=== PATIENT | female | born 1995 | race Caucasian/White ===

== ENCOUNTER 2022-12-17 10:43 | Outpatient (CLI) | payer OTHER, SELFPAY | END 2022-12-17 10:44 | disposition home or self-care (01) | PROVIDERS: PCP Family Medicine; Visit Provider Obstetrics & Gynecology | DX: O20.9 Hemorrhage in early pregnancy, unspecified (principal) | CPT/HCPCS: 84702; 86900; 86901 ==

== ENCOUNTER 2022-12-17 15:18 | Outpatient (CLI) | payer OTHER, SELFPAY ==
--- NOTE | 2022-12-17 15:00 | CRLHL7_ITS ---
For Patients: As a result of the Century Cures Act, medical imaging exams and procedure reports are released immediately into your electronic medical record. You may view this report before your referring provider. If you have questions, please contact your health care provider. INDICATION: Bleeding in . TECHNIQUE: Ultrasound OB pelvis transabdominal and transvaginal. Real-time mead-scale imaging of the pelvis was performed. COMPARISON: None. FINDINGS: No definite intrauterine gestational sac or pole identified. Questionable intrauterine gestational sac seen in the fundus. The endometrium measures 8 millimeters. The ovaries are of normal size. Indeterminate 2.1 centimeter anechoic lesion in the right ovary with mural wall nodularity/septa. IMPRESSION: No definite intrauterine gestational sac or pole identified. Questionable intrauterine gestational sac seen in the fundus. Indeterminate 2.1 centimeter anechoic lesion in the right ovary with mural wall nodularity/septate, possibly a corpus luteal cyst. Differential includes of uncertain location, early gestation, or miscarriage in the appropriate clinical setting. Recommend correlation with same-day quantitative beta HCG, as well as follow-up with OB Gyne, trending of beta HCG, and short term repeat ultrasound. Dictated by Sp Alonso MD @ 12/17/2022 4:54:59 PM (Electronically Signed)
== END 2022-12-17 15:19 | disposition home or self-care (01) ==
LOC: US 15:18
PROVIDERS: PCP Family Medicine; Visit Provider Obstetrics & Gynecology
DX: O20.9 Hemorrhage in early pregnancy, unspecified (principal)
CPT/HCPCS: 76817

== ENCOUNTER 2022-12-20 09:12 | Outpatient (CLI) | payer OTHER, SELFPAY | END 2022-12-20 09:13 | disposition home or self-care (01) | LOC: NFLDREF 12-21 07:02 | PROVIDERS: PCP Family Medicine; Referring Provider Family Medicine; Visit Provider Obstetrics & Gynecology | DX: O20.9 Hemorrhage in early pregnancy, unspecified (principal) | CPT/HCPCS: 84702 ==

== ENCOUNTER 2023-01-07 10:54 | Outpatient (CLI) | payer OTHER, SELFPAY ==
--- NOTE | 2023-01-07 11:00 | CRLHL7_ITS ---
For Patients: As a result of the Century Cures Act, medical imaging exams and procedure reports are released immediately into your electronic medical record. You may view this report before your referring provider. If you have questions, please contact your health care provider. INDICATION: Follow up viability COMPARISON: 12.17.22 TECHNIQUE: Real-time mead-scale imaging of the pelvis was performed. FINDINGS: Sonographic imaging demonstrates a single living intrauterine gestation. The embryo demonstrates a regular cardiac rate measuring 154 beats per minute. The embryo`s crown-rump length measurement of 1.6 cm corresponds to a gestational age of 8 weeks 0 days with a sonographic due date of 08/19/2023. There is a normal-appearing yolk sac. There are no gross abnormalities noted within the embryo at this early state of development. The gestational sac has a normal appearance. There is no evidence of a perigestational hemorrhage. The amount of fluid within the sac appears appropriate for gestational age. IMPRESSION: Single living intrauterine with sonographic gestational age 8 weeks 0 days and sonographic due date of 08/19/2023. Dictated by Andrea uHbbard MD @ 01/07/2023 11:59:46 AM (Electronically Signed)
== END 2023-01-07 10:55 | disposition home or self-care (01) ==
LOC: US 10:55
PROVIDERS: PCP Family Medicine; Visit Provider Physician Assistant
DX: Z34.92 Encounter for supervision of normal pregnancy, unspecified, second trimester (principal); Z3A.14 14 weeks gestation of pregnancy
CPT/HCPCS: 0353U; 76817; 86703; 86803; 86850; 86900; 86901; 87340; 87491; 87591

== ENCOUNTER 2023-01-07 12:31 | Outpatient (CLI) | payer OTHER, SELFPAY ==
[2023-01-07 21:33] LABS: Chlamydia DNA Amplified* NOT DETECTED (No Detected); GC DNA Amplified* NOT DETECTED (No Detected)
== END 2023-01-07 12:32 | disposition home or self-care (01) ==
PROVIDERS: PCP Family Medicine; Visit Provider Registered Nurse
DX: Z34.92 Encounter for supervision of normal pregnancy, unspecified, second trimester (principal); Z3A.14 14 weeks gestation of pregnancy
CPT/HCPCS: 0353U; 86592; 86703; 86762; 86787; 86803; 86850; 86900; 86901; 87086; 87340

== ENCOUNTER 2023-02-03 20:40 | Day surgery (SDC) | payer OTHER, SELFPAY ==
[2023-02-03] VITALS (23 sets, daily range): BP systolic 83–126; BP diastolic 50–94; PULSE 76–143; RESP 16–20; TEMP 36.2–38.2; O2SAT 96–100; BMI 29.6
--- NOTE | 2023-02-03 20:54 | ED_ITS ---
HPI - General Adult General Time Seen by Provider: 20:54 Date Seen: 02/03/23 Chief complaint: Vaginal Bleeding Stated complaint: Having a miscarriage, losing blood Time Seen by Provider: 02/03/23 20:54 Source: patient and RN notes reviewed Mode of arrival: ambulatory Limitations: no limitations History of Present Illness HPI narrative: Patient is a 28-year-old female coming in with significant vaginal bleeding. Nursing staff requested physician in the room immediately. She started bleeding heavily about an hour ago, states maybe about a pint every 15 minutes. She has a towel in her pants and is soaking through this. She reportedly is about 12 weeks but was told that she lost the baby about 8 weeks. She had some spotting over the last week. She states she was given cytotec in clinic today and that is when the bleeding really picked up. She is feeling lightheaded and dizzy. She is looking pale to her . Related Data Home Medications Medication Instructions Recorded Confirmed PNV,[id number] 27 mg-folic 400 cap PO 12/17/22 02/03/23 mcg-Lfolate 1 mg-dha 250 mg capsule cetirizine 10 mg tablet (Zyrtec) 10 mg PO QDAY PRN 02/03/23 02/03/23 Previous Rx's Medication Instructions Recorded ibuprofen 800 mg tablet 800 mg PO Q8H #12 tabs 02/03/23 ondansetron 4 mg disintegrating 4 mg PO Q8H #5 tabs 02/03/23 tablet Allergies Allergy/AdvReac Type Severity Reaction Status Date / Time acetaminophen [From Vicodin] Allergy Intermediate Vomiting Verified 02/03/23 14:17 hydrocodone [From Vicodin] Allergy Intermediate Vomiting Verified 02/03/23 14:17 Review of Systems Status of ROS: Reports: 6 or more systems reviewed and unremarkable except as noted in History and below [facility] Medical History (Updated 02/03/23 @ 22:03 by Vicki Faulkner MD) Incomplete ?O03.4 - Incomplete spontaneous without complication (ICD-10) Surgical History (Updated 02/03/23 @ 22:04 by Vicki Faulkner MD) S/P D&C (status post dilation and curettage) (02/03/23) ?Z98.890 - Other specified postprocedural states (ICD-10) [place] teeth extracted ?K08.409 - Partial loss of teeth, unspecified cause, unspecified class (ICD- 10) Social History Smoking Status: Never smoker Little interest or pleasure in doing things: not at all Feeling down, depressed, or hopeless: not at all Exam Const: Vital Signs, click to edit/add: Vital Signs - 24 hr 02/03/23 20:57 02/03/23 21:14 02/03/23 21:48 Temperature 98.1 F 97.1 F L Pulse Rate 78 Pulse Rate [Left P ulse Oximeter] 118 H Pulse Rate [Right Pulse Oximeter] Respiratory Rate 20 16 Blood Pressure 95/60 Blood Pressure [Le ft Arm] Blood Pressure [Ri ght Upper Arm] 110/73 Pulse Oximetry 96 99 100 [facility] Room Air 02/03/23 21:11 02/03/23 21:15 02/03/23 21:17 Temperature Pulse Rate 123 H 143 H Pulse Rate [Left P ulse Oximeter] Pulse Rate [Right Pulse Oximeter] Respiratory Rate Blood Pressure 111/94 H Blood Pressure [Le ft Arm] Blood Pressure [Ri ght Upper Arm] Pulse Oximetry 100 97 Oxygen Delivery [facility] 02/03/23 21:22 02/03/23 21:26 02/03/23 21:30 Temperature Pulse Rate 91 82 85 Pulse Rate [Left P ulse Oximeter] Pulse Rate [Right Pulse Oximeter] Respiratory Rate Blood Pressure 88/50 L 83/56 L Blood Pressure [Le ft Arm] Blood Pressure [Ri ght Upper Arm] Pulse Oximetry 100 100 100 Oxygen Delivery [facility] 02/03/23 21:31 02/03/23 21:45 02/03/23 21:47 Temperature Pulse Rate 85 76 80 Pulse Rate [Left P ulse Oximeter] Pulse Rate [Right Pulse Oximeter] Respiratory Rate Blood Pressure 92/62 95/60 Blood Pressure [Le ft Arm] Blood Pressure [Ri ght Upper Arm] Pulse Oximetry 100 100 99 Oxygen Delivery [facility] 02/03/23 22:49 02/03/23 23:00 02/03/23 23:15 Temperature 98.4 F Pulse Rate 103 H 93 93 Pulse Rate [Left P ulse Oximeter] Pulse Rate [Right Pulse Oximeter] Respiratory Rate 16 16 16 Blood Pressure 119/88 114/78 106/81 Blood Pressure [Le ft Arm] Blood Pressure [Ri ght Upper Arm] Pulse Oximetry 100 100 100 Oxygen Delivery [facility] Room Air Room Air 02/03/23 22:55 02/03/23 23:05 02/03/23 23:10 Temperature 100.3 F H Pulse Rate 91 93 92 Pulse Rate [Left P ulse Oximeter] Pulse Rate [Right Pulse Oximeter] Respiratory Rate 16 16 16 Blood Pressure 117/94 H 111/86 110/84 Blood Pressure [Le ft Arm] Blood Pressure [Ri ght Upper Arm] Pulse Oximetry 100 100 100 Oxygen Delivery [facility] Room Air 02/03/23 23:20 02/03/23 23:25 02/03/23 23:30 Temperature 100.8 F H 100.3 F H Pulse Rate 92 103 H 90 Pulse Rate [Left P ulse Oximeter] Pulse Rate [Right Pulse Oximeter] Respiratory Rate 18 18 20 Blood Pressure 113/86 126/90 H 126/83 Blood Pressure [Le ft Arm] Blood Pressure [Ri ght Upper Arm] Pulse Oximetry 99 100 100 Oxygen Delivery [facility] Room Air Room Air 02/03/23 23:40 02/03/23 23:54 02/04/23 00:05 Temperature 98.6 F 98.6 F 98.6 F Pulse Rate 84 Pulse Rate [Left P ulse Oximeter] Pulse Rate [Right Pulse Oximeter] 84 91 Respiratory Rate 16 16 16 Blood Pressure Blood Pressure [Le ft Arm] 123/85 123/85 128/81 Blood Pressure [Ri ght Upper Arm] Pulse Oximetry 99 99 Oxygen Delivery [facility] Room Air Room Air Room Air 02/04/23 00:20 02/04/23 00:35 Temperature 98.3 F 98.7 F Pulse Rate Pulse Rate [Left P ulse Oximeter] Pulse Rate [Right Pulse Oximeter] 83 87 Respiratory Rate 16 16 Blood Pressure Blood Pressure [Le ft Arm] 124/85 131/87 Blood Pressure [Ri ght Upper Arm] Pulse Oximetry 99 99 Oxygen Delivery [facility] Room Air Room Air Course Course Hospital Course: Patient is having significant bleeding after misoprostol for a miscarriage. We will plan on obtaining 2 IVs, type and screen. I have looked in her records and she is O positive, antibody screen negative. Her hemoglobin was 13 on January 07. She will be on cardiac monitoring and pulse oximetry. I have ordered a L of normal saline to start with, more fluids and O negative blood if needed. Reevaluation(s) Reevaluation #1: Have contacted OB on-call Dr. Davin Ayala. We will be contacting the OR crew through the warehouse handler. Patient will be going to the OR for a D&C. Time: 21:07 Reevaluation #2: Nursing staff alerted me to patient feeling faint dizzy, recheck of her blood pressure was systolic 80. We are initiating a 2nd unit of normal saline, 1 unit of O negative emergently. 2 units of packed red cells to be typed and screened. Have updated the press box custodian, she asked for FFP to be thought which I have alerted lab to and ordered. I am also ordering 1000 mg IV transxemic acid. Time: 21:27 Vital Signs Vital signs: Initial Vital Signs Pulse Oximetry 96 02/03/23 20:57 Vital Signs Pulse Oximetry 96 02/03/23 20:57 Temperature 98.7 F 02/04/23 00:35 Pulse Rate 87 02/04/23 00:35 Respiratory Rate 16 02/04/23 00:35 Blood Pressure 131/87 02/04/23 00:35 Pulse Oximetry 99 02/04/23 00:35 Oxygen Delivery Method Room Air 02/04/23 00:35 Medical Decision Making Lab Data Lab results reviewed: Yes I reviewed the patient's lab results Labs: Lab Results 02/03/23 02/03/23 02/03/23 Range/Units 21:01 22:23 22:23 WBC 18.22 H 23.78 H (4.50-11.00) K/uL RBC 3.62 L 2.85 L (4.00-5.20) m/uL Hgb 11.4 L 8.8 L (12.0-16.0) gm/dL Hct 34.3 26.5 L (33.0-51.0) % MCV 95 93 (80-100) fL MCH 32 31 (26-34) pg MCHC 33 33 (32-36) gm/dL RDW Coeff of Ferdinand 12.0 12.5 (11.5-15.5) % Plt Count 400 274 (140-440) K/uL Neut % (Auto) 68.7 81.9 H (42.0-72.0) % Lymph % (Auto) 22.9 10.5 L (20-44) % [place] % (Auto) 6.0 5.1 (0.0-11.0) % Eos % (Auto) 1.9 0.7 (0.0-7.0) % Baso % (Auto) 0.3 0.2 (0.0-3.0) % Neut # (Auto) 12.50 H 19.50 H (1.7-7.0) K/uL Lymph # (Auto) 4.20 H 2.50 (0.90-2.90) K/uL [place] # (Auto) 1.10 H 1.20 H (0.00-0.90) K/UL Eos # (Auto) 0.30 0.20 (0.00-0.50) K/uL Baso # (Auto) 0.10 0.00 (0.00-0.30) K/uL INR 1.27 H (0.91-1.10) APTT 27 Cancelled (23-33) Seconds Fibrinogen 270 (200-450) mg/dL Sodium 134 L (135-149) mmol/L Potassium 3.4 L (3.6-5.1) mmol/L Chloride 102 (96-114) mmol/L Carbon Dioxide 19 L (20-32) mmol/L BUN 11 (5-24) mg/dL Creatinine 0.6 (0.5-1.5) mg/dL Estimated Creat Clear 139.56 Estimated GFR 125 ml/min Glucose 151 H (60-115) mg/dL Calcium 9.0 (8.4-10.6) mg/dL Total Bilirubin (0.1-1.5) mg/dL AST (12-35) U/L ALT (4-35) U/L Alkaline Phosphatase (40-150) U/L Total Protein (6.0-8.3) g/dL Albumin (3.3-5.0) g/dL Crossmatch (AHG) See Detail 02/03/23 Range/Units 22:23 WBC (4.50-11.00) K/uL RBC (4.00-5.20) m/uL Hgb (12.0-16.0) gm/dL Hct (33.0-51.0) % MCV (80-100) fL MCH (26-34) pg MCHC (32-36) gm/dL RDW Coeff of Ferdinand (11.5-15.5) % Plt Count (140-440) K/uL Neut % (Auto) (42.0-72.0) % Lymph % (Auto) (20-44) % [place] % (Auto) (0.0-11.0) % Eos % (Auto) (0.0-7.0) % Baso % (Auto) (0.0-3.0) % Neut # (Auto) (1.7-7.0) K/uL Lymph # (Auto) (0.90-2.90) K/uL [place] # (Auto) (0.00-0.90) K/UL Eos # (Auto) (0.00-0.50) K/uL Baso # (Auto) (0.00-0.30) K/uL INR (0.91-1.10) APTT (23-33) Seconds Fibrinogen Cancelled (200-450) mg/dL Sodium 132 L (135-149) mmol/L Potassium 5.0 (3.6-5.1) mmol/L Chloride 109 (96-114) mmol/L Carbon Dioxide 19 L (20-32) mmol/L BUN 11 (5-24) mg/dL Creatinine 0.6 (0.5-1.5) mg/dL Estimated Creat Clear 139.56 Estimated GFR 125 ml/min Glucose 115 (60-115) mg/dL Calcium 7.2 L (8.4-10.6) mg/dL Total Bilirubin 0.2 (0.1-1.5) mg/dL AST 17 (12-35) U/L ALT 13 (4-35) U/L Alkaline Phosphatase 36 L (40-150) U/L Total Protein 5.0 L (6.0-8.3) g/dL Albumin 2.7 L (3.3-5.0) g/dL Crossmatch (AHG) Critical Care Time Critical Care Time Critical Care Time: Yes Attestation: The patient required my highest level preparedness to intervene emergently and I personally spent this critical care time directly and personally managing the patient. This critical care time included: Obtaining a history; Examining the patient; Pulse oximetry; Ordering and reviewing of studies; Arranging urgent treatment with development of a management plan; Evaluation of patients response to treatment; Frequent reassessment discussions with other providers. This critical care time was performed to assess and manage the high probability of imminent life-threatening deterioration that could result in multiorgan failure. It was exclusive of separate billable procedures and treating other patients and teaching time. Total Critical Care Time in Minutes: 30 Discharge Plan Discharge Clinical Impression: Miscarriage, Hemorrhage Patient Disposition: XFER to OR Condition: Guarded
[2023-02-03 21:06] LABS: Basophils Percent Auto 0.3 % (0.0-3.0); Eosinophils Percent Auto 1.9 % (0.0-7.0); Hematocrit 34.3 % (33.0-51.0); Hemoglobin* 11.4 gm/dL (12.0-16.0); Immature Granulocytes Pct Auto 0.2 %; Lymphocytes Percent Auto 22.9 % (20-44); Mean Corpuscular HGB Conc 33 gm/dL (32-36); Mean Corpuscular Hemoglobin 32 pg (26-34); Mean Corpuscular Volume 95 fL (80-100); Neutrophils Percent Auto 68.7 % (42.0-72.0); Platelet Count* 400 K/uL (140-440); Red Blood Count 3.62 m/uL (4.00-5.20); White Blood Count* 18.22 K/uL (4.50-11.00)
[2023-02-03] MEDS: 0.9 % SODIUM CHLORIDE 1000 ml 1,000 ML IV ×2 (21:08→21:41)
[2023-02-03 21:15] LABS: Slide Review Reflex No
[2023-02-03 21:20] LABS: Chloride* 102 mmol/L (96-114); Potassium* 3.4 mmol/L (3.6-5.1); Sodium* 134 mmol/L (135-149)
[2023-02-03 21:23] LABS: Blood Urea Nitrogen* 11 mg/dL (5-24); Carbon Dioxide* 19 mmol/L (20-32); Creatinine* 0.6 mg/dL (0.5-1.5); Est. Creatinine Clearance* 139.56; Estimated Glomerular Filt Rate 125 ml/min; Glucose* 151 mg/dL (60-115)
[2023-02-03] MEDS: TRANEXAMIC ACID 100 MG/ML INJ 1000 MG IV (21:43)
--- NOTE | 2023-02-03 21:58 | ED.NURSE ---
Pt to the OR with surgery, 8 min after transfusion was started. Will be monitored by OR staff
--- NOTE | 2023-02-03 22:06 | P.PCN_ITS ---
Procedure Note Time Seen by Provider: 22:06 Date Seen: 02/03/23 Date of procedure: 02/03/23 Will [facility] bill your pro fee for this procedure?: Yes Procedure: Preoperative diagnosis: Ju is a 28-year-old 1 para 0010 with an incomplete miscarriage with hemorrhage at age and 2/7 weeks gestation by ultrasound. Postoperative diagnosis: Same Procedure: Suction curettage Anesthesia: General endotracheal, paracervical block Surgeon: Vicki Faulkner MD Scheduling Coordinator: Not applicable IV fluid: 2200 mL crystalloid, unit PRBCs Estimated blood loss: 500 mL Urine output: 225 mL, clear urine at the end of the procedure Specimen: Products of conception to pathology Findings: On exam under anesthesia: the uterus was approximately 10 weeks size, mid position. Cervical os was dilated with active bleeding. Adnexa were without mass or fullness palpable. The uterus sounded to 10 cm. On suction curettage there was a moderate to large amount of products of conception. Bleeding stopped almost immediately after the products of conception were removed from the uterus. Procedure: Ju was taken to the operating room where conscious sedation was found to be adequate. She was placed in the dorsal lithotomy position and an exam under anesthesia was performed with with findings stated above. She was then prepped and draped in normal sterile manner. A bivalve speculum was placed in the vagina to visualize the cervix. A paracervical block was placed using 0.5% Marcaine: 5 mL injected at the 4 and 8 o'clock positions on the cervix. The anterior lip of the cervix was grasped with a long Allis clamp. The cervix was dilated to [place] # 14. A # 14 curved curette was then advanced into the uterus without difficulty. A suction curettage was then performed using 40-50 mmHg pressure. Three passes with the curette were performed to remove all visualized tissue. The curette was removed and mild, sharp curettage was performed to verify that all of the products of conception had been removed. One last pass with the curved curette was then made to verify that all of the tissue had been removed. The Allis clamp was removed from the anterior lip of the cervix. Nothing was needed to obtain hemostasis. Excellent hemostasis was noted. The speculum was then removed from the vagina. The patient tolerated this procedure well. Sponge, lap and instrument counts were correct x2 the end of the procedure. The patient was awakened from sedation and taken to the recovery area in stable condition. Patient received 2 g of IV Ancef prior to the procedure. She had 1 unit of packed red blood cells morning as she was going back to the operating room from the emergency department. The massive transfusion protocol was activated just after the patient arrived in the operating room. A 2nd unit of packed red blood cells was started as the patient was taken to the recovery room. 1 unit of fresh frozen plasma was available transfuse. Repeat CBC was ordered in the operating room. In addition: INR, PTT, fibrinogen and comprehensive metabolic panel were ordered Above labs were ordered stat.
[2023-02-03] MEDS: BUPIVACAINE 0.5% 30 ML INJECTION (22:25)
[2023-02-03 22:41] LABS: Albumin* 2.7 g/dL (3.3-5.0); Chloride* 109 mmol/L (96-114); Sodium* 132 mmol/L (135-149)
[2023-02-03 22:44] LABS: Alanine Aminotransferase* 13 U/L (4-35); Alkaline Phosphatase* 36 U/L (40-150); Aspartate Amino Transferase* 17 U/L (12-35); Bilirubin Total* 0.2 mg/dL (0.1-1.5); Blood Urea Nitrogen* 11 mg/dL (5-24); Carbon Dioxide* 19 mmol/L (20-32); Creatinine* 0.6 mg/dL (0.5-1.5); Est. Creatinine Clearance* 139.56; Estimated Glomerular Filt Rate 125 ml/min; Glucose* 115 mg/dL (60-115); INR 1.27 (0.91-1.10); Partial Thromboplastin Time* 27 Seconds (23-33); Prothrombin Time 16.6 Seconds
[2023-02-03 22:45] LABS: Basophils Percent Auto 0.2 % (0.0-3.0); Calcium* 7.2 mg/dL (8.4-10.6); Eosinophils Percent Auto 0.7 % (0.0-7.0); Fibrinogen* 270 mg/dL (200-450); Hematocrit 26.5 % (33.0-51.0); Hemoglobin* 8.8 gm/dL (12.0-16.0); Immature Granulocytes Pct Auto 1.6 %; Lymphocytes Percent Auto 10.5 % (20-44); Mean Corpuscular HGB Conc 33 gm/dL (32-36); Mean Corpuscular Hemoglobin 31 pg (26-34); Mean Corpuscular Volume 93 fL (80-100); Monocytes Percent Auto 5.1 % (0.0-11.0); Neutrophils Percent Auto 81.9 % (42.0-72.0); Platelet Count* 274 K/uL (140-440); RDW Coefficient of Variation % 12.5 % (11.5-15.5); Red Blood Count 2.85 m/uL (4.00-5.20); White Blood Count* 23.78 K/uL (4.50-11.00)
[2023-02-03 22:46] LABS: Slide Review Reflex No
[2023-02-03] MEDS: LACTATED RINGERS 1000 ML 1,000 ML 125 ML IV (23:00)
[2023-02-03] MEDS: ONDANSETRON 2 MG/ML inj 4 MG IVP (23:20)
[2023-02-04] VITALS (10 sets, daily range): BP systolic 113–132; BP diastolic 78–90; PULSE 77–99; RESP 16; TEMP 36.8–37.2; O2SAT 98–100
--- NOTE | 2023-02-04 00:01 | W.ANESCHARGE ---
Anesthesia Charges Start Date/Time Anesthesia Start Date: 02/04/23 Anesthesia Start Time: 22:02 Stop Date/Time Anesthesia Stop Date: 02/04/23 Anesthesia Stop Time: 22:50 Summary Emergency: SHIPPING SERVICES SALES REPRESENTATIVE
[2023-02-04] MEDS: LACTATED RINGERS 1000 ML 1,000 ML 75 ML IV (03:30)
[2023-02-04 06:00] LABS: Basophils Percent Auto 0.3 % (0.0-3.0); Eosinophils Percent Auto 1.2 % (0.0-7.0); Hemoglobin* 9.9 gm/dL (12.0-16.0); Lymphocytes Percent Auto 24.3 % (20-44); Mean Corpuscular HGB Conc 34 gm/dL (32-36); Mean Corpuscular Hemoglobin 31 pg (26-34); Mean Corpuscular Volume 91 fL (80-100); Monocytes Percent Auto 7.2 % (0.0-11.0); Platelet Count* 228 K/uL (140-440); White Blood Count* 9.87 K/uL (4.50-11.00)
[2023-02-04 06:01] LABS: Slide Review Reflex No
[2023-02-04 06:11] LABS: Chloride* 110 mmol/L (96-114)
[2023-02-04 06:12] LABS: Albumin* 2.9 g/dL (3.3-5.0); Sodium* 137 mmol/L (135-149)
[2023-02-04 06:14] LABS: Bilirubin Total* 1.1 mg/dL (0.1-1.5); Creatinine* 0.5 mg/dL (0.5-1.5); Est. Creatinine Clearance* 167.47; Estimated Glomerular Filt Rate 130 ml/min
[2023-02-04 06:15] LABS: Alanine Aminotransferase* 16 U/L (4-35); Alkaline Phosphatase* 42 U/L (40-150); Aspartate Amino Transferase* 20 U/L (12-35); Blood Urea Nitrogen* 6 mg/dL (5-24); Carbon Dioxide* 24 mmol/L (20-32); Glucose* 114 mg/dL (60-115); Total Protein* 5.5 g/dL (6.0-8.3)
[2023-02-04 06:18] LABS: INR 1.15 (0.91-1.10); Prothrombin Time 15.4 Seconds
[2023-02-04 06:23] LABS: Fibrinogen* 287 mg/dL (200-450); Partial Thromboplastin Time* 28 Seconds (23-33)
--- NOTE | 2023-02-04 08:29 | PM.GYNDS1 ---
DS: Providers Provider Time Seen by Provider: 08:29 Date Seen: 02/04/23 Date of admission: 02/03/23 Primary care physician: Cierra Gil MD Admitting Clinician: Kaushik Attending Physician on discharge: MD Susan Date of Discharge: 02/04/23 DS: Diagnosis Discharge Diagnosis (1) Incomplete : Status: Acute Problem details: Early demise at 8 weeks, initially treated medically and then via suction curettage for acute hemorrhage. (2) Hemorrhage: Status: Acute Problem details: With transfusion of 2 units pRBC's and 1 unit FFP. (3) Anemia associated with acute blood loss: Status: Acute Problem details: Hgb 9.9 at discharge BIOMEDICAL ENGINEERING TECHNICIAN-Discharge Summary Hospital Course Hospital Course Narrative: Patient is a 28 year old G1 now P0010 admitted on for hemorrhage following medical management of early intrauterine demise at 8 weeks gestation. Indication for surgery: hemorrhage following medical management of early intrauterine demise at 8 weeks gestation. Intraoperative findings were notable for moderate amount of products of conception. Bleeding resolved immediately after removal of products of conception. She had an uncomplicated surgery. Postoperative course has been uneventful. Vitals have been stable. She has remained afebrile. Today, on postoperative day 1, she reports the pain is well controlled. She has been able to ambulate Without difficulty. She is tolerating regular diet. She is feels tired and says she did not sleep well. Hospital Course: Labs normalizing. INR still slightly elevated, Hgb 9.9. Time Spent with Patient Time attestation: Total time spent providing and/or coordinating discharge services: Time spent: Less than 30 minutes BIOMEDICAL ENGINEERING TECHNICIAN - Exam Physical Exam: Vital signs: Temp Pulse Resp BP Pulse Ox O2 Del Method 99.0 F 80 16 132/90 H 98 Room Air 02/04/23 04:30 02/04/23 07:30 02/04/23 07:30 02/04/23 07:30 02/04/23 07:30 02/04/23 07:30 Constitutional: Constitutional: no acute distress Routine HEENT Exam: Head: Present normal inspection Routine Neck Exam: NECK: Present supple Routine Respiratory Exam: Respiratory: Present CTA bilaterally; Absent crackles, rhonchi or wheezes Routine Cardiovascular Exam: Cardiovascular: Present RRR; Absent murmur Routine Abdominal Exam: Abdominal: Present normal bowel sounds and soft; Absent distended or tenderness Routine Extremities Exam: Extremities: Present normal inspection; Absent calf tenderness or pedal edema Routine Psychiatric Exam: Psychiatric: Present normal affect BIOMEDICAL ENGINEERING TECHNICIAN - DS: Data Data Completed and Pending Labs on day of discharge: Labs from last 24 hours 02/04/23 02/03/23 02/03/23 05:30 22:23 22:23 WBC 9.87 RBC 3.20 L Hgb 9.9 L Hct 29.0 L MCV 91 MCH 31 MCHC 34 RDW Coeff of Ferdinand Plt Count 228 Neut % (Auto) 66.0 Lymph % (Auto) 24.3 [place] % (Auto) 7.2 Eos % (Auto) 1.2 Baso % (Auto) 0.3 Neut # (Auto) 6.50 Lymph # (Auto) 2.40 [place] # (Auto) 0.70 Eos # (Auto) 0.10 Baso # (Auto) 0.00 INR 1.15 H APTT 28 Cancelled Fibrinogen 287 Cancelled 270 Sodium 137 132 L Potassium 4.0 5.0 Chloride 110 109 Carbon Dioxide 24 19 L BUN 6 11 Creatinine 0.5 0.6 Estimated Creat Clear 167.47 139.56 Estimated GFR 130 125 Glucose 114 115 Calcium 8.0 L 7.2 L Total Bilirubin 1.1 0.2 AST 20 17 ALT 16 13 Alkaline Phosphatase 42 36 L Total Protein 5.5 L 5.0 L Albumin 2.9 L 2.7 L Blood Type Antibody Screen Crossmatch (AHG) 02/03/23 02/03/23 22:23 21:01 WBC 23.78 H 18.22 H RBC 2.85 L 3.62 L Hgb 8.8 L 11.4 L Hct 26.5 L 34.3 MCV 93 95 MCH 31 32 MCHC 33 33 RDW Coeff of Ferdinand 12.5 12.0 Plt Count 274 400 Neut % (Auto) 81.9 H 68.7 Lymph % (Auto) 10.5 L 22.9 [place] % (Auto) 5.1 6.0 Eos % (Auto) 0.7 1.9 Baso % (Auto) 0.2 0.3 Neut # (Auto) 19.50 H 12.50 H Lymph # (Auto) 2.50 4.20 H [place] # (Auto) 1.20 H 1.10 H Eos # (Auto) 0.20 0.30 Baso # (Auto) 0.00 0.10 INR 1.27 H APTT 27 Fibrinogen Sodium 134 L Potassium 3.4 L Chloride 102 Carbon Dioxide 19 L BUN 11 Creatinine 0.6 Estimated Creat Clear 139.56 Estimated GFR 125 Glucose 151 H Calcium 9.0 Total Bilirubin AST ALT Alkaline Phosphatase Total Protein Albumin Blood Type Pending Antibody Screen Pending Crossmatch (AHG) See Detail Procedures Procedures: Procedures Operation Date: 02/03/23 22:10 Actual Procedure Side Surgeon p Suction Dilatation & Curettage Vicki Faulkner MD Discharge Plan Discharge Disposition: Home, Self-Care Discharging Surgeon: Gina Davis Follow-Up Appointment: 2 weeks Prescriptions: New ibuprofen 600 mg Tablet 600 mg PO Q6H Qty: 30 0RF ferrous sulfate 324 mg (65 mg iron) tablet,delayed release (DR/EC) 324 mg PO DAILY Qty: 30 0RF Continued PNV,Ca#[id number]-dha 27 mg iron-400 mcg-1 mg-250mg capsule PO cetirizine [Zyrtec] 10 mg tablet 10 mg PO QDAY PRN ibuprofen 800 mg tablet 800 mg PO Q8H Qty: 12 0RF ondansetron 4 mg tablet,disintegrating 4 mg PO Q8H Qty: 5 0RF Discontinued misoprostol [Cytotec] 200 mcg tablet 800 mcg vaginal ONCE Qty: 4 0RF Rx Instructions: take 800mcg vaginally 24 hours after Mifeprex Activity Level: Activity as Tolerated Activity Detail: Nothing vaginally x2 weeks. Discharge Diet: Regular Patient Instructions: Dilation and Curettage (DC) Forms: Work/School Release Follow-up: [facility] [Provider Group] Cierra Gil MD [Primary Care Provider] - Discharge Orders: Discharge Order (Routine); Ordered 02/04/23 Ordered By: Gina Davis
== END 2023-02-04 10:00 | disposition home or self-care (01) ==
LOC: ED 21:42 → SS 21:58 → OB 22:16
PROVIDERS: Emergency Provider Family Medicine; PCP Family Medicine; Visit Provider Obstetrics & Gynecology
PROC: (CPT 59812; principal; 2023-02-03 22:00)
DX: O03.1 Delayed or excessive hemorrhage following incomplete spontaneous abortion (principal); D62 Acute posthemorrhagic anemia
CPT/HCPCS: 59812; 00940; 36415; 36430; 76817; 80048; 80053; 85025; 85384; 85610; 85730; 86850; 86900; 86901; 86922; 88305; 94761; 99140; 99284; 99285; 99291; J0330; J0610; J2250; J2370; J2405; J2704; J3490; J7030; J7120; P9016; P9017

== ENCOUNTER 2023-04-28 09:52 | Outpatient (CLI) | payer OTHER, SELFPAY | END 2023-04-28 09:53 | disposition home or self-care (01) | PROVIDERS: PCP Family Medicine; Visit Provider Obstetrics & Gynecology | DX: R63.5 Abnormal weight gain (principal); N92.6 Irregular menstruation, unspecified; R60.9 Edema, unspecified | CPT/HCPCS: 80053; 84443 ==

== ENCOUNTER 2023-06-10 10:21 | Outpatient (CLI) | payer OTHER, SELFPAY | END 2023-06-10 10:22 | disposition home or self-care (01) | LOC: NFLDREF 06-11 06:16 | PROVIDERS: PCP Family Medicine; Referring Provider Family Medicine; Visit Provider Obstetrics & Gynecology | DX: E03.8 Other specified hypothyroidism (principal) | CPT/HCPCS: 84443 ==